=== PATIENT | male | born 1985 | race Caucasian/White ===

== ENCOUNTER 2024-11-05 14:09 | Outpatient (CLI) | payer OTHER, SELFPAY | END 2024-11-05 14:10 | disposition home or self-care (01) | PROVIDERS: PCP Family Medicine; Visit Provider Family Medicine | DX: E78.5 Hyperlipidemia, unspecified (principal); K76.0 Fatty (change of) liver, not elsewhere classified; E66.811 Obesity, class 1; Z13.1 Encounter for screening for diabetes mellitus | CPT/HCPCS: 80053; 80061 ==